=== PATIENT | female | born 1970 | race Caucasian/White ===

== ENCOUNTER 2024-03-01 20:19 | Emergency (ER) | payer OTHER, SELFPAY ==
[2024-03-01 20:21] VITALS: BP 133/78; PULSE 64; RESP 20; TEMP 36.4; O2SAT 100; BMI 26.7
--- NOTE | 2024-03-01 20:28 | XRR_ITS ---
PROCEDURE INFORMATION: Exam: XR Chest Exam date and time: 03/01/2024 8:34 PM Age: 53 years old Clinical indication: Dyspnea; Additional info: Dyspnea/cough TECHNIQUE: Imaging protocol: Radiologic exam of the chest. Views: 1 view. COMPARISON: No relevant prior studies available. FINDINGS: Lungs: No definitive consolidation. Pleural spaces: Pleura Heart/Mediastinum: Heart size is within normal limits. Possible calcified left hilar lymph nodes. Bones/joints: 16 mm ovoid opacity overlying the left lateral lung base likely related to the 7th costochondral junction, though no corresponding opacity seen on the contralateral side. No acute osseous abnormalities are seen. XR/XR chest 1V portable [id number] IMPRESSION: 1. 16 mm ovoid opacity in the right lateral lung base is likely artifactual. Recommend short interval follow-up repeat chest radiograph versus CT chest as indicated. 2. No definitive evidence of acute cardiopulmonary disease.
--- NOTE | 2024-03-01 20:28 | CTR_ITS ---
PROCEDURE INFORMATION: Exam: CT Head Without Contrast Exam date and time: 03/01/2024 8:51 PM Age: 53 years old Clinical indication: Syncope and collapse; Patient HX: Syncopal episode from standing. Patient is not sure if she struck her head. ; Additional info: Trauma TECHNIQUE: Imaging protocol: Computed tomography of the head without contrast. Radiation optimization: All CT scans at this facility use at least one of these dose optimization techniques: automated exposure control; mA and/or kV adjustment per patient size (includes targeted exams where dose is matched to clinical indication); or iterative reconstruction. COMPARISON: No relevant prior studies available. RADIATION DOSE METRICS: Total DLP (mGy-cm): 978.44 FINDINGS: Brain: No intracranial hemorrhage. No edema or mass effect. No significant deep white matter abnormality. Cerebral ventricles: Normal ventricles. Paranasal sinuses: The paranasal sinuses are clear. Mastoid air cells: The mastoid air cells are clear. Bones: No acute osseous abnormalities are seen. Soft tissues: The soft tissues are within normal limits. CT/CT head wo con* [id number] IMPRESSION: No acute intracranial pathology.
--- NOTE | 2024-03-01 20:30 | ED_ITS ---
HPI - Syncope 2 General: Chief Complaint: Syncope Stated Complaint: SYNCOPE Time Seen by Provider: 03/01/24 20:21 Source: patient Mode of arrival: EMS History of Present Illness: 53-year-old female who presents to the e mergency room with an episode of syncope. She was at [facility] with her grand son and passed out while she was standing at the checkout she began to feel faint even slightly diaphoretic felt weak she tried to sit down on the low counter and then collapsed off of that and fell to the floor she thinks she may have hit her head. She denies any history of heart problems denies any history of arrhythmias or chronic respiratory issues she is not diabetic. She does smoke regularly. No prescription medications. She feels fine now she had no loss of consciousness. no chest discomfort or palpitations at this time. MD complaint: loss of consciousness and collapsed Onset (ago): minute(s) Prodromal symptoms: lightheaded and diaphoresis Witnessed: Yes - by Bystander Context: standing up Injuries sustained associated with event: head Associated symptoms: Reports nausea; Deny abdominal pain, chest pain or fever(s) Treatments prior to arrival: none Review of Systems 2 Const: Denies: fever(s) or chills Card: Denies: chest pain Resp: Denies: dyspnea GI: Reports: nausea; Denies: abdominal pain or vomiting : Denies: dysuria, urinary frequency or urinary urgency Musc: Denies: neck pain or back pain Skin/Breast: Denies: rash Physical Exam 2 Const: COMMON NORMALS: no acute distress GENERAL APPEARANCE: cooperative and comfortable ORIENTATION/CONSCIOUSNESS: Yes awake, Yes oriented to person, Yes oriented to place and Yes oriented to time HENMT: COMMON NORMALS: normocephalic, atraumatic and hearing grossly normal bilaterally HEAD & SCALP: normocephalic and atraumatic Resp: COMMON NORMALS: normal respiratory effort, No retractions, No use of accessory muscles and clear to auscultation bilaterally AUSCULTATION: clear to auscultation bilaterally Cardio: COMMON NORMALS: regular rate, regular rhythm and No murmurs present (Cardio) RATE: regular rate RHYTHM: regular rhythm GI: COMMON NORMALS: Soft to palpation and No hepatosplenomegaly present A USCULTATION: Yes normoactive bowel sounds PALPATION: Yes Soft to palpation, No Tenderness to palpation present (GI), No Guarding due to palpation present (GI) and Yes No hepatosplenomegaly present Extremity: COMMON NORMALS: normal to inspection, capillary refill normal, no clubbing, cyanosis or edema, no calf tenderness and no pedal edema Neuro: SENSORIUM/ORIENTATION: Yes oriented to person, Yes oriented to place and Yes oriented to time Skin: COMMON NORMALS: no rashes or lesions noted GENERAL SKIN EXAM: no rashes or lesions noted Course 2 Vital Signs: Vital signs: Vital Signs Temperature 97.6 F 03/01/24 20:21 Pulse Rate 66 03/01/24 22:03 Respiratory Rate 14 03/01/24 22:03 Blood Pressure 143/96 03/01/24 22:03 Pulse Oximetry 100 03/01/24 22:03 Oxygen Delivery Me thod Room Air 03/01/24 22:03 MDM - Syncope Medical Decision Making Patient did have positive orthostatics she is feeling better after fluids. Cardiac enzymes negative EKGs did not show acute changes. Discussed with the patient we will go ahead and discharge her home set her up for a outpatient 48 Holter Holter monitor and a echocardiogram. Patient did have a PVC on EKG. No frequent PVCs on rhythm. Follow-up with PCP. Return if has further problems. Medical Records I reviewed the patient's medical records. Lab Data I reviewed the patient's lab results. 03/01/24 20:29 03/01/24 20:29 Radiology Impressions Chest X-Ray 03/01/24 20:28 IMPRESSION: 1. 16 mm ovoid opacity in the right lateral lung base is likely artifactual. Recommend short interval follow-up repeat chest radiograph versus CT chest as indicated. 2. No definitive evidence of acute cardiopulmonary disease. Head CT 03/01/24 20:28 IMPRESSION: No acute intracranial pathology. Laboratory Results WBC 10.31 10^3/uL (3.29-11.43) 03/01/24 20: RBC 4.28 10^6/uL (3.85-5.65) 03/01/24 20: Hgb 12.70 g/dL (11.27-16.99) 03/01/24 20: Hct 38.3 % (36-47) 03/01/24 20: MCV 89.5 fl (85-98) 03/01/24 20: MCH 29.7 pg (27-33) 03/01/24 20: MCHC 33.2 g/dL (30-55) 03/01/24: RDW 14.2 % (12.1-15.1) 03/01/24: Plt Count 221 10^3/cmm (157-399) 03/01/24: MPV 11.0 fL (7.4-10.4) H 03/01/24: Neut % (Auto) 48.5 % 03/01/24 20: Lymph % (Auto) 40.5 % 03/01/24: Dougherty % (Auto) 5.9 % 03/01/24: Eos % (Auto) 3.1 % 03/01/24: Baso % (Auto) 0.8 % 03/01/24: Neut # (Auto) 5.00 10^3/uL (1.8-7.7) 03/01/24: Lymph # (Auto) 4.2 10^3/uL (0.8-4.8) 03/01/24: Dougherty # (Auto) 0.6 10^3/uL (0.2-0.9) 03/01/24: Eos # (Auto) 0.3 10^3/uL (0.0-0.8) 03/01/24: Baso # (Auto) 0.1 10^3/uL (0.0-0.1) 03/01/24: Nucleated RBC % (auto) 0 % 03/01/24: Nucleated RBCs # 0.0 /100WBC 03/01/24 20: Sodium 142 mmol/L (136-145) 03/01/24 20: Potassium 4.2 mmol/L (3.5-5.1) 03/01/24: Chloride 106 mmol/L (98-107) 03/01/24 20: Carbon Dioxide 24 mmol/L (22-29) 03/01/24: Anion Gap 16.2 (5-19) 03/01/24 20: BUN 11 mg/dL (6-20) 03/01/24: Creatinine 0.8 mg/dL (0.5-0.9) 03/01/24 20:29 GFR Calculation 75.3 mL/min (90-130) L 03/01/24 20:29 Glucose 123 mg/dL (65-115) H 03/01/24 20:29 Calculated Osmolality 295 mOsm/kg (285-295) 03/01/24 20: Calcium 9.2 mg/dL (8.5-10.5) 03/01/24 20: Magnesium 2.0 mg/dL (1.7-2.3) 03/01/24 20: Total Bilirubin 0.2 mg/dL (0.15-1.2) 03/01/24 20:29 AST 26 U/L (0-32) 03/01/24 20: ALT 34 U/L (0-33) H 03/01/24 20: Alkaline Phosphatase 123 U/L (35-105) H 03/01/24 20:29 Troponin T Baseline < 6 ng/L (0-10) 03/01/24 20: Troponin T 120 Minute 6.00 ng/L (0-10) 03/01/24 22:01 Delta Troponin T 0.08773 ABS# (0-10) 03/01/24 22:01 Total Protein 6.3 g/dL (6.6-8.7) L 03/01/24 20: Albumin 4.1 g/dL (3.5-5.2) 03/01/24 20: Globulin 2.2 g/dL (1.3-4.6) 03/01/24 20:29 Urine Color Yellow (Yellow) 03/01/24 20:46 Urine Appearance Clear (CLEAR) 03/01/24 20:46 Urine pH 5 (5-7) 03/01/24 20:46 Ur Specific Munger 1.010 (1.005-1.030) 03/01/24 20:46 Urine Protein Neg (Negative) 03/01/24 20:46 Urine Glucose (UA) Norm (Normal) 03/01/24 20:46 Urine Ketones Negative (Negative) 03/01/24 20:46 Urine Blood Neg (Negative) 03/01/24 20:46 Urine Nitrate Negative (Negative) 03/01/24 20:46 Urine Bilirubin Neg (Negative) 03/01/24 20:46 Urine Urobilinogen Neg mg/dL (Negative) 03/01/24 20:46 Ur Leukocyte Esterase 1+ (Negative) H 03/01/24 20:46 Urine RBC 0-4 /hpf (0-2) H 03/01/24 20:46 Urine WBC 5-10 /hpf (0-5) H 03/01/24 20:46 Ur Squamous Epith Cells 0-4 /hpf (0-5) H 03/01/24 20:46 Amorphous Sediment 1+ /hpf 03/01/24 20:46 Urine Bacteria 1+ /hpf (NONE) H 03/01/24 20:46 Urine Mucus Trace /hpf 03/01/24 20:46 All radiology interpretation(s) finalized by discharge EKG Data EKG 1: Interpretation: EKG shows a normal sinus rhythm with single PVC noted on the tracing. Heart rate of 67 ID interval and QT are normal. No acute ST changes are noted. Discharge Plan Discharge Patient Disposition: Home Clinical Impression: Syncope due to orthostatic hypotension Condition: Stable Discharge Orders: Discharge ED (Routine); Ordered 03/01/24 Ordered By: Tye Dorsey Discharge Diet: Usual diet Discharge Activity: Increase activity as tolerated Patient Instructions: Opioid Safety, Pain Management Activity Restrictions/Additional Instructions: Thank you for choosing [facility] for your healthcare needs today. It is very important that you follow up as instructed or that you return to the Emergency Department should you have concerns or if your condition changes or worsens in any way. You were seen today after a syncopal episode. Suspect it was caused by orthostatic hypotension. Cardiac enzymes and EKG were normal. Recommend that you have a 48-hour Holter monitor and an echocardiogram. Follow-up with your primary care doctor. Coding Level of Care Code ED Product Manager E [employer] for Frandy Morse
[2024-03-01 20:34] LABS: Basophils # 0.1 10^3/uL (0.0-0.1); Basophils % 0.8 %; Eosinophils # 0.3 10^3/uL (0.0-0.8); Eosinophils % 3.1 %; Hematocrit 38.3 % (36-47); Lymphocytes # 4.2 10^3/uL (0.8-4.8); Lymphocytes % 40.5 %; Mean Corpuscular HGB Conc 33.2 g/dL (30-55); Mean Corpuscular Hemoglobin 29.7 pg (27-33); Mean Corpuscular Volume 89.5 fl (85-98); Monocytes # 0.6 10^3/uL (0.2-0.9); Monocytes % 5.9 %; Neutrophils % 48.5 %; Nucleated Red Blood Cells % 0 %; Platelet Count 221 10^3/cmm (157-399); Red Blood Count 4.28 10^6/uL (3.85-5.65); Red Cell Distribution Width 14.2 % (12.1-15.1); White Blood Count 10.31 10^3/uL (3.29-11.43)
[2024-03-01 20:37] VITALS: PULSE 65; RESP 14; O2SAT 98
[2024-03-01 20:46] VITALS: BP 105/78; BP 119/80; BP 121/81; PULSE 62; PULSE 64; PULSE 71
[2024-03-01 20:50] LABS: Troponin(5th) Baseline < 6 ng/L (0-10)
[2024-03-01 20:52] LABS: Alanine Aminotransferase 34 U/L (0-33); Albumin Level 4.1 g/dL (3.5-5.2); Alkaline Phosphatase 123 U/L (35-105); Anion Gap 16.2 (5-19); Aspartate Amino Transferase 26 U/L (0-32); Blood Urea Nitrogen 11 mg/dL (6-20); Calcium 9.2 mg/dL (8.5-10.5); Carbon Dioxide 24 mmol/L (22-29); Chloride 106 mmol/L (98-107); Creatinine Clr Calc Pharmacy 79.3763; Globulin 2.2 g/dL (1.3-4.6); Glomerular Filtration Rate 75.3 mL/min (90-130); Glucose 123 mg/dL (65-115); Osmolality Calculated 295 mOsm/kg (285-295); Potassium 4.2 mmol/L (3.5-5.1); Sodium 142 mmol/L (136-145); Total Bilirubin 0.2 mg/dL (0.15-1.2); Total Protein 6.3 g/dL (6.6-8.7)
[2024-03-01] MEDS: sodium chloride 0.9% 1,000 ML 999 ML IV (20:59)
[2024-03-01 21:07] LABS: Add Urine Microscopic? YES; Bacteria Urine 1+ /hpf; Bilirubin Urine Neg (Negative); Blood Urine Neg (Negative); Glucose Urine UA Norm (Normal); Ketones Urine Negative (Negative); Leukocyte Esterase Urine 1+ (Negative); Nitrate Urine Negative (Negative); Protein Urine Neg (Negative); RBC Urine 0-4 /hpf (0-2); Squamous Epithelial Cell Urine 0-4 /hpf (0-5); Urine Appearance Clear (CLEAR); Urine Color Yellow (Yellow); Urobilinogen Urine Neg (Negative); pH Urine 5 (5-7)
[2024-03-01 21:08] LABS: Amorphous Sediment Urine 1+ /hpf; Mucus Urine TRACE /hpf
[2024-03-01 21:29] VITALS: PULSE 65; O2SAT 100
[2024-03-01 22:03] VITALS: BP 143/96; PULSE 66; RESP 14; O2SAT 100
[2024-03-01 22:29] LABS: Troponin 5 2HR Delta 0.00001 ABS# (0-10)
[2024-03-01 22:58] VITALS: PULSE 66; O2SAT 99
--- NOTE | 2024-03-05 08:04 | DCPLANNER ---
Message to Cardiology for follow up request for a 48 holter monitor- Syncopal episode
== END 2024-03-01 23:00 | disposition home or self-care (01) ==
PROVIDERS: Emergency Provider Family Medicine
DX: I95.1 Orthostatic hypotension (principal)
CPT/HCPCS: 70450; 71045; 80053; 81001; 83735; 84484; 85025; 99285; J7030

== ENCOUNTER 2024-03-14 15:00 | Outpatient (CLI) | payer OTHER, SELFPAY ==
--- NOTE | 2024-03-14 15:15 | USCV_ITS ---
Annemarie Cedillo Age: 53 Gender: F : 1970 Exam Date: 03/14/2024 15:06 Ordering Phys: Tye Dorsey DO Technologist: SYLVESTER [place] [facility] [place]: SYNCOPE BP: 132 / 90 HR: 62 Rhythm: Sinus Technical Quality: Adequate MEASUREMENTS (Male / Female) Normal Values 2D ECHO LV Diastolic Diameter PLAX 4.2 cm 4.2 - 5.9 / 3.9 - 5.3 cm IVS Diastolic Thickness 1.3 cm 0.6 - 1.0 / 0.6 - 0.9 cm IVS Systolic Thickness 1.3 cm LVPW Diastolic Thickness 1.4 cm 0.6 - 1.0 / 0.6 - 0.9 cm LVPW Systolic Thickness 2.0 cm LVOT Diameter 2.0 cm LV Ejection Fraction 2D Teich 64.6 % LV Ejection Fraction MOD 2C 59.3 % LV Ejection Fraction 2C AL 59.9 % LA Diameter 2.7 cm RA Systolic Volume 4C AL 22.9 ml RA Systolic Volume 4C MOD 21.9 ml LA Sys Volume AL 27.8 cm cubed LA Sys Volume Index AL 15.4 cm cubed/m squared Aorta at Sinotubular Diameter 1.8 cm IVC Diameter 1.2 cm M-MODE LA Ao Ratio MM 0.7 AV Cusp Separation MM 1.3 cm DOPPLER AV Peak Velocity 118.0 cm/s LVOT Peak Velocity 81.0 cm/s AV Area Cont Eq vti 2.4 cm squared AV Area Cont Eq pk 2.2 cm squared MV Peak Velocity 72.0 cm/s MV Area PHT 4.7 cm squared Mitral E to A Ratio 1.1 TR Peak Velocity 259.0 cm/s TR Peak Gradient 26.8 mmHg TR Mean Velocity 208.0 cm/s TR Mean Gradient 19.1 mmHg TR Velocity Time Integral 89.5 cm TV Peak E Velocity 52.0 cm/s Right Atrial Pressure 3.0 mmHg Pulmonary Artery Systolic Pressu 29.8 mmHg PV Peak Velocity 82.0 cm/s RV Ejection Time 0.3 s FINDINGS Left Ventricle Normal left ventricular size, systolic function and wall thickness, with no regional wall motion abnormalities. Left ventricular ejection fraction 55%. Normal diastolic filling pattern. Right Ventricle The right ventricle is normal in size and function. Right Atrium The right atrium is normal in size. Left Atrium The left atrium is normal in size. Mitral Valve Structurally normal mitral valve without significant stenosis or prolapse. There is trace mitral regurgitation. Aortic Valve Structurally normal aortic valve without significant sclerosis or stenosis. There is trace aortic regurgitation. Tricuspid Valve Structurally normal tricuspid valve without significant stenosis mild regurgitation. Pulmonary artery systolic pressure is normal. Pulmonic Valve Structurally normal pulmonic valve without significant stenosis. There is no pulmonic regurgitation. Pericardium Normal pericardium without effusion. Aorta Normal ascending aorta dimension. IVC The inferior vena cava appears normal. CONCLUSIONS 1-Normal left ventricular size, systolic function and wall thickness, with no regional wall motion abnormalities. Left ventricular ejection fraction 55%. Normal diastolic filling pattern. 2-There is no pericardial effusion. 3-No significant valve abnormalities. 4-Right atrial pressure is around 5 mm of mercury. Kaley James MD (Electronically Signed) Final Date: 14 March 2024 20:02 S
== END 2024-03-14 15:01 | disposition home or self-care (01) ==
PROVIDERS: PCP Nurse Practitioner Family; Visit Provider Family Medicine
DX: R55 Syncope and collapse (principal)
CPT/HCPCS: 93306

== ENCOUNTER 2024-03-24 13:17 | Emergency (ER) | payer OTHER, SELFPAY ==
[2024-03-24] VITALS (9 sets, daily range): BP systolic 103–133; BP diastolic 74–84; PULSE 60–76; RESP 16–26; TEMP 36.5; O2SAT 99
--- NOTE | 2024-03-24 13:33 | ECG_ITS ---
[facility] Test Date: 2024-03-24 Pat Name: Annemarie Cedillo Department: Room: Gender: Female Soda Flaker: : 1970 Requested By: Tye Calhoun Order Number: [id number] Julissa MD: Darrin Welsh M.D. Measurements Intervals [place] Rate: 65 P: 46 AZ: 139 QRS: 52 QRSD: 98 T: 32 QT: 408 QTc: 425 Interpretive Statements SINUS RHYTHM NONSPECIFIC T-WAVE ABNORMALITY Compared to ECG 03/01/2024 22:42:31 No significant changes Electronically Signed On 03-24-2024 21:03:56 CDT by Darrin Welsh M.D. [id number] f
--- NOTE | 2024-03-24 13:37 | XRR_ITS ---
PROCEDURE INFORMATION: Exam: XR Chest Exam date and time: 03/24/2024 1:54 PM Age: 53 years old Clinical indication: Cough and dyspnea; Additional info: Dyspnea/cough TECHNIQUE: Imaging protocol: Radiologic exam of the chest. Views: 1 view. COMPARISON: No relevant prior studies available. FINDINGS: Lungs: No focal consolidation. Pleural spaces: No evidence of pneumothorax. No evidence of pleural effusion. Heart/Mediastinum: Cardiomediastinal silhouette is within normal limits. Bones/joints: No evidence of acute osseous abnormality. XR/XR chest 1V portable [id number] IMPRESSION: 1. No acute cardiopulmonary abnormality.
--- NOTE | 2024-03-24 13:55 | W.ED.CHESTPA ---
HPI - Chest Pain General: Chief Complaint: Chest Pain Stated Complaint: dizziness/ chest pounding Time Seen by Provider: 03/24/24 13:32 Source: patient Mode of arrival: ambulatory History of Present Illness: 53-year-old female who presents to the emergency room with complaints of dizziness intermittent palpitations and fluttering. We had seen her several weeks ago she had a syncopal-like episode that improved with IV fluids and she was discharged home. Intermittently since then she is continue to have diabetes and difficulty with word finding. Today it was worse after she had gone out to her garden to get some vegetables. She went back to her room laid down and continued to have dizziness. She also reports a pounding sensation in her chest she did have a previous carotids echo she tells me was normal additionally she had a Holter monitor that was normal. She is not having any chest discomfort at this time initial evaluation she has a stroke score of 2 for mild aphasia and left-sided facial numbness. This is been intermittent for some time slightly worse today. The rest of her evaluation is normal. Exacerbating factors: nothing Associated symptoms: Reports palpitations; Deny abdominal pain, diaphoresis, dyspnea, fever(s), leg edema, nausea, sense of impending doom, syncope or vomiting Review of Systems Const: Reports: fatigue; Denies: fever(s), chills or diaphoresis Card: Reports: chest pain and palpitations; Denies: edema or syncope Resp: Denies: dyspnea GI: Denies: abdominal pain, nausea or vomiting : Denies: dysuria, urinary frequency or urinary urgency Musc: Denies: neck pain or back pain Skin/Breast: Denies: rash [facility] ED PFSH: Social History Smoking and tobacco/nicotine status: current every day tobacco/nicotine user Physical Exam Const: GENERAL APPEARANCE: cooperative and comfortable ORIENTATION/CONSCIOUSNESS: Yes awake, Yes oriented to person, Yes oriented to place and Yes oriented to time HENMT: COMMON NORMALS: normocephalic, atraumatic and hearing grossly normal bilaterally HEAD & SCALP: normocephalic and atraumatic Resp: COMMON NORMALS: normal respiratory effort, No retractions, No use of accessory muscles and clear to auscultation bilaterally AUSCULTATION: clear to auscultation bilaterally Cardio: COMMON NORMALS: regular rate, regular rhythm and No murmurs present (Cardio) RATE: regular rate RHYTHM: regular rhythm GI: COMMON NORMALS: Soft to palpation and No hepatosplenomegaly present AUSCULTATION: Yes normoactive bowel sounds PALPATION: Yes Soft to palpation, No Tenderness to palpation present (GI), No Guarding due to palpation present (GI) and Yes No hepatosplenomegaly present Extremity: COMMON NORMALS: normal to inspection, capillary refill normal, no clubbing, cyanosis or edema, no calf tenderness and no pedal edema Neuro: SENSORIUM/ORIENTATION: Yes oriented to person, Yes oriented to place and Yes oriented to time Skin: COMMON NORMALS: no rashes or lesions noted GENERAL SKIN EXAM: no rashes or lesions noted Course Vital Signs: Vital signs: Vital Signs Temperature 97.7 F 03/24/24 13:28 Pulse Rate 68 03/24/24 18:31 Respiratory Rate 18 03/24/24 18:05 Blood Pressure 117/77 03/24/24 18:31 Pulse Oximetry 99 03/24/24 18:05 MDM - Chest Pain Medical Decision Making Reviewed patient Dr. Guzmán on-call she recommends that in case elective she would help patient get an MRI and MRA of the head as an outpatient. Patient had further evaluation as an outpatient resistance or Billings's of the carotid and echo are not available here she relates to me that those were normal. No findings on the CT. She still has some dizziness but it is improved with fluids. Her orthostatics are also improved. Discharge the patient home for now we will start her on dual platelet therapy and atorvastatin as well. Set her up for the MRI and MRI as well as neurology consultation. Medical Records I reviewed the patient's medical records. Lab Data I reviewed the patient's lab results. 03/24/24 15:10 03/24/24 15:10 Radiology Impressions Chest X-Ray 03/24/24 13:37 IMPRESSION: 1. No acute cardiopulmonary abnormality. Head CT 03/24/24 13:57 IMPRESSION: 1. No acute intracranial abnormality. ASSESSMENT: ASPECTS (Desiree Stroke Program Early CT Score) is 10. Laboratory Results WBC 8.68 10^3/uL (3.29-11.43) 03/24/24 15:10 RBC 4.70 10^6/uL (3.85-5.65) 03/24/24 15:10 Hgb 14.00 g/dL (11.27-16.99) 03/24/24 15:10 Hct 43.3 % (36-47) 03/24/24 15:10 MCV 92.1 fl (85-98) 03/24/24 15:10 MCH 29.8 pg (27-33) 03/24/24 15:10 MCHC 32.3 g/dL (30-55) 03/24/24 15:10 RDW 13.9 % (12.1-15.1) 03/24/24 15:10 Plt Count 203 10^3/cmm (157-399) 03/24/24 15:10 MPV 11.2 fL (7.4-10.4) H 03/24/24 15:10 Neut % (Auto) 58.1 % 03/24/24 15:10 Lymph % (Auto) 30.6 % 03/24/24 15:10 Keith % (Auto) 7.8 % 03/24/24 15:10 Eos % (Auto) 2.5 % 03/24/24 15:10 Baso % (Auto) 0.8 % 03/24/24 15:10 Neut # (Auto) 5.03 10^3/uL (1.8-7.7) 03/24/24 15:10 Lymph # (Auto) 2.7 10^3/uL (0.8-4.8) 03/24/24 15:10 Keith # (Auto) 0.7 10^3/uL (0.2-0.9) 03/24/24 15:10 Eos # (Auto) 0.2 10^3/uL (0.0-0.8) 03/24/24 15:10 Baso # (Auto) 0.1 10^3/uL (0.0-0.1) 03/24/24 15:10 Nucleated RBC % (auto) 0 % 03/24/24 15:10 Nucleated RBCs # 0.0 /100WBC 03/24/24 15:10 PT 11.90 SECONDS (12.1-14.9) L 03/24/24 15:10 INR 0.86 (0.8-1.2) 03/24/24 15:10 APTT 27.7 SECONDS (23.9-36.7) 03/24/24 15:10 Sodium 144 mmol/L (136-145) 03/24/24 15:10 Potassium 3.8 mmol/L (3.5-5.1) 03/24/24 15:10 Chloride 108 mmol/L (98-107) H 03/24/24 15:10 Carbon Dioxide 25 mmol/L (22-29) 03/24/24 15:10 Anion Gap 14.8 (5-19) 03/24/24 15:10 BUN 9 mg/dL (6-20) 03/24/24 15:10 Creatinine 0.6 mg/dL (0.5-0.9) 03/24/24 15:10 GFR Calculation 105.0 mL/min (90-130) 03/24/24 15:10 Glucose 85 mg/dL (65-115) 03/24/24 15:10 POC Glucose 66 mg/dL (70-110) L 03/24/24 15:00 Calculated Osmolality 296 mOsm/kg (285-295) H 03/24/24 15:10 Calcium 9.1 mg/dL (8.5-10.5) 03/24/24 15:10 Total Bilirubin 0.2 mg/dL (0.15-1.2) 03/24/24 15:10 AST 32 U/L (0-32) 03/24/24 15:10 ALT 41 U/L (0-33) H 03/24/24 15:10 Alkaline Phosphatase 141 U/L (35-105) H 03/24/24 15:10 Troponin T Baseline < 6 ng/L (0-10) 03/24/24 15:10 Troponin T 120 Minute 6.00 ng/L (0-10) 03/24/24 17:48 Delta Troponin T 0.12170 ABS# (0-10) 03/24/24 17:48 Total Protein 6.4 g/dL (6.6-8.7) L 03/24/24 15:10 Albumin 4.1 g/dL (3.5-5.2) 03/24/24 15:10 Globulin 2.3 g/dL (1.3-4.6) 03/24/24 15:10 Urine Color Yellow (Yellow) 03/24/24 14:32 Urine Appearance Clear (CLEAR) 03/24/24 14:32 Urine pH 6 (5-7) 03/24/24 14:32 Ur Specific [place] 1.010 (1.005-1.030) 03/24/24 14:32 Urine Protein Neg (Negative) 03/24/24 14:32 Urine Glucose (UA) Norm (Normal) 03/24/24 14:32 Urine Ketones Negative (Negative) 03/24/24 14:32 Urine Blood Neg (Negative) 03/24/24 14:32 Urine Nitrate Negative (Negative) 03/24/24 14:32 Urine Bilirubin Neg (Negative) 03/24/24 14:32 Urine Urobilinogen Norm mg/dL (Negative) 03/24/24 14:32 Ur Leukocyte Esterase Negative (Negative) 03/24/24 14:32 Urine Opiates Screen Negative ng/mL (Negative) 03/24/24 14:32 Ur Barbiturates Screen Negative ng/mL (Negative) 03/24/24 14:32 Ur Phencyclidine Scrn Negative ng/mL (Negative) 03/24/24 14:32 Ur Amphetamines Screen Negative ng/mL (Negative) 03/24/24 14:32 U Benzodiazepines Scrn Negative ng/mL (Negative) 03/24/24 14:32 Urine Cocaine Screen Negative ng/mL (Negative) 03/24/24 14:32 U Marijuana (THC) Screen Negative ng/mL (Negative) 03/24/24 14:32 All radiology interpretation(s) finalized by discharge Discharge Plan Discharge Patient Disposition: Home Clinical Impression: Atypical chest pain, Aphasia, Orthostasis, Dizziness Condition: Stable Prescriptions: New aspirin 81 mg tablet,delayed release (DR/EC) 81 mg PO DAILY Qty: 30 0RF atorvastatin 40 mg tablet 40 mg PO DAILY Qty: 30 0RF clopidogrel 75 mg tablet 75 mg PO DAILY Qty: 30 0RF No Action eszopiclone [Lunesta] 3 mg tablet PO fluoxetine [Prozac] 40 mg capsule 40 mg PO DAILY loratadine [Allergy Relief (loratadine)] 10 mg tablet 10 mg PO DAILY amoxicillin 500 mg capsule 500 mg PO BID 10 Days Qty: 20 0RF albuterol sulfate [Ventolin HFA] 90 mcg/actuation HFA aerosol inhaler 2 puff inhalation Q6H PRN (Reason: shortness of breath or wheezing) Qty: 6.7 0RF methylprednisolone [Medrol (Andrew)] 4 mg tablets,dose pack See Rx Instructions PO PER PKG DIR Qty: 21 0RF Rx Instructions: PO PER PKG DIR Discharge Orders: Discharge ED (Routine); Ordered 03/24/24 Ordered By: Tye Dorsey Referrals: Clare Jaime APN [Primary Care Provider] - Discharge Diet: Usual diet Discharge Activity: Increase activity as tolerated Patient Instructions: Opioid Safety, Pain Management Activity Restrictions/Additional Instructions: [facility]. It is very important that you follow up as instructed or that you return to the Emergency Department should you have concerns or if your condition changes or worsens in any way. manager process excellence will make arrangements for you to have a follow-up MRI and MRI of your head. As well as a follow-up with neurology. Recommend that you start aspirin and Plavix daily as well as atorvastatin 40 mg daily. Return if you have further problems. Coding Level of Care Code ED Manager Field Services for [facility] Morse NIH stroke score NIHSS Level Of Consciousness - 1a: 0 Level Of Consciousness Questions - 1b: Both Correct Level Of Consciousness Commands - 1c: Both Correct Best Gaze - 2: Normal Visual Zamudio - 3: No Visual Loss Facial Palsy - 4: Normal Motor Arm Right - 5: No Drift Motor Arm Left - 5: No Drift Motor Leg Right - 6: No Drift Motor Leg Left - 6: No Drift Limb Ataxia - 7: Absent Sensory - 8: Mild To Moderate Loss (Face only left side) Best Language - 9: Mild/Moderate Aphasia Dysarthia - 10: Normal Extinction And Inattention - 11: 0 Score Total Score: 2
--- NOTE | 2024-03-24 13:57 | CTR_ITS ---
PROCEDURE INFORMATION: Exam: CT Head Without Contrast Exam date and time: 03/24/2024 1:59 PM Age: 53 years old Clinical indication: Stroke-like symptoms; Dizziness/giddiness and syncope/collapse; Additional info: Symptoms of acute stroke TECHNIQUE: Imaging protocol: Computed tomography of the head without contrast. Radiation optimization: All CT scans at this facility use at least one of these dose optimization techniques: automated exposure control; mA and/or kV adjustment per patient size (includes targeted exams where dose is matched to clinical indication); or iterative reconstruction. Other technique: STROKE PROTOCOL was implemented. COMPARISON: No relevant prior studies available. RADIATION DOSE METRICS: Total DLP (mGy-cm): 1013.78 FINDINGS: Brain: No evidence of intra-axial or extra-axial hemorrhage. No mass effect or midline shift. Wade-white differentiation is maintained. Basilar cisterns are patent. Cerebral ventricles: No hydrocephalus. Paranasal sinuses: The visualized paranasal sinuses are well aerated. Mastoid air cells: The visualized mastoids and middle ears are clear. Bones: Unremarkable. No acute fracture. Soft tissues: No gross soft tissue abnormality. CT/CT head thrombolytic 14916 IMPRESSION: 1. No acute intracranial abnormality. ASSESSMENT: ASPECTS (Desiree Stroke Program Early CT Score) is 10.
[2024-03-24 15:03] LABS: Glucose Point of Care 66 mg/dL (70-110)
[2024-03-24 15:06] LABS: Add Urine Microscopic? NO; Charge for UA Resulting for Rev
[2024-03-24 15:14] LABS: Bilirubin Urine Neg (Negative); Blood Urine Neg (Negative); Glucose Urine UA Norm (Normal); Ketones Urine Negative (Negative); Nitrate Urine Negative (Negative); Protein Urine Neg (Negative); Urine Appearance Clear (CLEAR); Urine Color Yellow (Yellow); pH Urine 6 (5-7)
[2024-03-24 15:14] LABS: Basophils # 0.1 10^3/uL (0.0-0.1); Basophils % 0.8 %; Eosinophils # 0.2 10^3/uL (0.0-0.8); Eosinophils % 2.5 %; Hematocrit 43.3 % (36-47); Lymphocytes # 2.7 10^3/uL (0.8-4.8); Lymphocytes % 30.6 %; Mean Corpuscular HGB Conc 32.3 g/dL (30-55); Mean Corpuscular Hemoglobin 29.8 pg (27-33); Mean Corpuscular Volume 92.1 fl (85-98); Mean Platelet Volume 11.2 fL (7.4-10.4); Monocytes # 0.7 10^3/uL (0.2-0.9); Monocytes % 7.8 %; Neutrophils # 5.03 10^3/uL (1.8-7.7); Neutrophils % 58.1 %; Nucleated Red Blood Cells % 0 %; Platelet Count 203 10^3/cmm (157-399); Red Cell Distribution Width 13.9 % (12.1-15.1); White Blood Count 8.68 10^3/uL (3.29-11.43)
[2024-03-24 15:15] LABS: Leukocyte Esterase Urine Negative (Negative); Urobilinogen Urine Norm (Negative)
[2024-03-24 15:23] LABS: Amphetamines Screen Urine Negative (Negative); Barbiturates Screen Urine Negative (Negative); Benzodiazepines Screen Urine Negative (Negative); Cocaine Screen Urine Negative (Negative); Opiate Screen Urine Negative (Negative); PCP Screen Urine Negative (Negative); THC Screen Urine Negative (Negative)
[2024-03-24 15:36] LABS: Alanine Aminotransferase 41 U/L (0-33); Albumin Level 4.1 g/dL (3.5-5.2); Alkaline Phosphatase 141 U/L (35-105); Anion Gap 14.8 (5-19); Aspartate Amino Transferase 32 U/L (0-32); Blood Urea Nitrogen 9 mg/dL (6-20); Calcium 9.1 mg/dL (8.5-10.5); Carbon Dioxide 25 mmol/L (22-29); Chloride 108 mmol/L (98-107); Creatinine Clr Calc Pharmacy 104.8931; Globulin 2.3 g/dL (1.3-4.6); Glucose 85 mg/dL (65-115); Osmolality Calculated 296 mOsm/kg (285-295); Potassium 3.8 mmol/L (3.5-5.1); Sodium 144 mmol/L (136-145); Total Bilirubin 0.2 mg/dL (0.15-1.2); Total Protein 6.4 g/dL (6.6-8.7)
[2024-03-24 15:37] LABS: INR 0.86 (0.8-1.2); Troponin(5th) Baseline < 6 ng/L (0-10)
--- NOTE | 2024-03-24 15:37 | ECG_ITS ---
[facility] Test Date: 2024-03-24 Pat Name: Annemarie Cedillo Department: Room: Gender: Female Review Appraiser: : 1970 Requested By: Tye Calhoun Order Number: [id number] Julissa MD: Darrin Welsh M.D. Measurements Intervals [place] Rate: 60 P: 44 TN: 139 QRS: 50 QRSD: 103 T: 44 QT: 427 QTc: 427 Interpretive Statements SINUS RHYTHM POSSIBLE RIGHT VENTRICULAR CONDUCTION DELAY [RSR (QR) IN V1/V2] Compared to ECG 03/24/2024 13:33:04 T-wave abnormality no longer present Electronically Signed On 03-24-2024 21:14:12 CDT by Darrin Welsh M.D. [id number]
[2024-03-24 15:38] LABS: Partial Thromboplastin Time 27.7 SECONDS (23.9-36.7)
[2024-03-24] MEDS: sodium chloride 0.9% 1,000 ML 999 ML IV (18:04)
[2024-03-24 18:11] LABS: Troponin 5 2HR Delta 0.00001 ABS# (0-10)
--- NOTE | 2024-03-25 13:57 | DCPLANNER ---
messaged neuro for er f/u and faxed mri/mra order to [facility] for f/u
== END 2024-03-24 18:53 | disposition home or self-care (01) ==
PROVIDERS: Emergency Provider Family Medicine; PCP Nurse Practitioner Family
DX: R07.89 Other chest pain (principal); R47.01 Aphasia; I95.1 Orthostatic hypotension; R42 Dizziness and giddiness; Z72.0 Tobacco use
CPT/HCPCS: 36416; 70450; 71045; 80053; 80306; 81003; 82962; 84484; 85025; 85610; 85730; 93005; 99285; J7030

== ENCOUNTER 2024-04-11 10:10 | Outpatient (CLI) | payer OTHER, SELFPAY ==
--- NOTE | 2024-04-11 10:15 | MR_ITS ---
WS: [id number] MRA ANGIOGRAPHY [place] HISTORY: DIZZINESS COMPARISON: None available. TECHNIQUE: 3-D MR angiography is performed of the [place]. All images are reviewed including source images. Distal vertebral and basilar arteries are intact with no significant stenosis or plaque. LEFT vertebr al artery is slightly dominant. Posterior cerebral arteries are normal course and caliber. Posterior communicating arteries are both patent. Intracranial portion of the internal carotid arteries are normal course and caliber. No significant a therosclerosis, stenosis or aneurysm identified. Middle and anterior cerebral arteries are both paten t with no significant disease. Anterior communicating artery is also normal. MR/MR angio head wo con [id number] IMPRESSION: Normal MRA [place].
== END 2024-04-11 10:11 | disposition home or self-care (01) ==
PROVIDERS: PCP Nurse Practitioner Family; Visit Provider Family Medicine
DX: R42 Dizziness and giddiness (principal)
CPT/HCPCS: 70544

== ENCOUNTER → 2024-07-30 09:52 | Outpatient (BNVA) | payer OTHER, SELFPAY | PROVIDERS: PCP Nurse Practitioner Family; Visit Provider Specialist | DX: R55 Syncope and collapse (principal); G43.711 Chronic migraine without aura, intractable, with status migrainosus | CPT/HCPCS: 36415; 82306; 82607; 82746; 84439; 84443; 86160; 86162; 86235; 86255; 86376 ==

== ENCOUNTER 2024-10-09 13:21 | Outpatient (CLI) | payer OTHER, SELFPAY ==
[2024-10-09 14:09] LABS: Vitamin B12 409 pg/mL (232-1245)
== END 2024-10-09 13:22 | disposition home or self-care (01) ==
LOC: LAB 13:24
PROVIDERS: PCP Nurse Practitioner Family; Visit Provider Specialist
DX: R55 Syncope and collapse (principal)
CPT/HCPCS: 36415; 82607

== ENCOUNTER 2024-10-11 12:06 | Outpatient (CLI) | payer OTHER, SELFPAY | END 2024-10-11 12:07 | disposition home or self-care (01) | PROVIDERS: PCP Nurse Practitioner Family; Visit Provider Specialist | DX: R55 Syncope and collapse (principal); G43.711 Chronic migraine without aura, intractable, with status migrainosus | CPT/HCPCS: 82384; 83497; 83835 ==

== ENCOUNTER → 2025-01-31 11:12 | Outpatient (BNVA) | payer OTHER, SELFPAY | PROVIDERS: PCP Registered Nurse; Visit Provider Registered Nurse | DX: R55 Syncope and collapse (principal) | CPT/HCPCS: 82306; 82607; 84443; 85025 ==